=== PATIENT | male | born 1995 | race Two or more races ===

== ENCOUNTER 2017-02-13 05:22 | Emergency (ER) | payer MEDICAID ==
[~2017-02-13] VITALS: Ht 167.6 cm; Wt 70.8 kg
[2017-02-13 05:27] VITALS: BP 127/65
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
[2017-02-13] MEDS ORDERED: IBUPROFEN600 MG ORAL (05:49)
[2017-02-13] MEDS ORDERED: KEFLEX500 MG ORAL (05:49)
[2017-02-13 06:25] VITALS: BP 124/90
== END 2017-02-13 06:25 | disposition home or self-care (01) ==
LOC: EDBD 05:22 → EMR 05:40
DX: S81.832A Puncture wound without foreign body, left lower leg, initial encounter (principal); X99.1XXA Assault by knife, initial encounter; Y92.009 Unspecified place in unspecified non-institutional (private) residence as the place of occurrence of the external cause
CPT/HCPCS: 12001; 99284; Z7502